=== PATIENT | male | born 1965 | race Caucasian/White ===

== ENCOUNTER 2022-01-17 21:30 | Emergency (ER) | payer OTHER ==
[2022-01-17 22:01] VITALS: BP 120/84; PULSE 73; RESP 15; TEMP 98; BMI 25.0
[2022-01-17] MEDS ORDERED: SILVER SULFADIAZINE 1% TOP CREAM 50 GM JAR TP ONE (22:36)
[2022-01-18] MEDS ORDERED: SILVER SULFADIAZINE 1% TOP CREAM 50 GM JAR TP SCH (10:00)
== END 2022-01-17 22:48 | disposition home or self-care (01) ==
LOC: FER 21:30
DX: T25.211A Burn of second degree of right ankle, initial encounter (principal)
CPT/HCPCS: 99283-25